=== PATIENT | male | born 1960 | race Caucasian/White ===

== ENCOUNTER 2020-07-04 14:20 | Emergency (ER) | payer SELFPAY ==
[2020-07-04 14:36] VITALS: BMI 29.2
[2020-07-04] MEDS ORDERED: LACTATED RINGERS SOLUTION 1000 ML INFUS.BAG IV ONE (15:12)
[2020-07-04] MEDS ORDERED: LIDOCAINE HCL 2% JELLY 10 ML CARTRIDGE TP ONE (15:24)
[2020-07-04] MEDS ORDERED: LIDOCAINE HCL 2% JELLY 10 ML CARTRIDGE ONE (15:26)
--- NOTE | 2020-07-04 15:46 | PDOC ---
History of Present Illness - General Chief Complaint: Alcohol intoxication Stated Complaint: INTOX/HEAD LAC Time Seen by Provider: 07/04/20 15:10 - History of Present Illness Initial Comments: 07/04/20 18:02 60yo M BIBEMS AMS w/ facial trauma. Hx UTO due to intoxication. Past History - Medical History Allergies/Adverse Reactions: Allergies Allergy/AdvReac Type Severity Reaction Status Date / Time No Known Allergies Allergy Verified 07/04/20 14:32 Home Medications: Ambulatory Orders Unobtainable 07/04/20 COPD: No - Psycho-Social/Smoking History Smoking History: Unknown if ever smoked - Substance Abuse Hx (Audit-C & DAST Scrn) In the last yr the pt used illegal drug/Rx for NonMed reason: No Score: Yes response is considered Positive: 0 Screen Result (Positive result requires Nsg. DAST-10): Negative Review of Systems - Review of Systems Able to Perform ROS?: No (intoxication) Is the patient limited Kyrgyz proficient: Yes *Physical Exam - Vital Signs Last Vital Signs Temp Pulse Resp BP Pulse Ox 98.2 F 77 18 108/72 96 07/04/20 14:33 07/04/20 14:33 07/04/20 14:33 07/04/20 14:33 07/04/20 14:33 - Physical Exam General Appearance: Yes: Alcohol on Breath, Intoxicated HEENT: positive: Lesions (laceration above Left eyebrow - 3cm from lateral to medial ), Other. negative: Muffled/Hoarse voice, Rhinorrhea, Hearing Decreased Neck: positive: Trachea midline, Supple. negative: Tender, Rigid, Stridor, Rigidity, Tender lateral, Tender midline Respiratory/Chest: positive: Lungs Clear, Normal Breath Sounds. negative: Chest Tender, Respiratory Distress Cardiovascular: positive: Regular Rhythm, Regular Rate, S1, S2. negative: Murmu r Gastrointestinal/Abdominal: positive: Normal Bowel Sounds, Soft. negative: Mass Musculoskeletal: positive: Normal Inspection. negative: CVA Tenderness, Vertebral Tenderness Extremity: positive: Normal Capillary Refill, Normal Inspection, Pelvis Stable Integumentary: positive: Normal Color, Dry, Warm Neurologic: positive: Disoriented. negative: Fully Oriented Procedures - Laceration/Wound Repair Left Anterior Face Wound Length: 2.6 to 5.0 cm Wound Explored: clean Wound's Depth, Shape: superficial, linear Irrigated w/ Saline: Yes Betadine Prep: No (chlorhexidine) Anesthesia: 1% Lidocaine (injected), 2% Lidocaine (topical) Wound Debrided: minimal Wound Repaired With: Sutures Suture Size/Type: 6:0, other Number of Sutures: 8 Layer Closure: Yes Splint Applied: No Medical Decision Making - Medical Decision Making 07/04/20 19:46 Pt slip and fall while intoxicated w/ face laceration and visible nose deformity -> C-spine immobilization collar, CT head, CT Cervical spine, and CT facial bones. Intoxicated -> measure blood glucose All CT negative for acute pathology Laceration required suture repair. On reassessment, patient is A/Ox4 and has steady gait. Denies midline tenderness when turning head left, right, and [id number]. Denies neurosensory deficits and motor/ROM is intact. -> cleared C-spine. Pt meets criteria for DC. 07/04/20 21:21 Discharge - Discharge Information Problems reviewed: Yes Clinical Impression/Diagnosis: Intoxication Head injury Qualifiers: Encounter type: initial encounter Qualified Code(s): S09.90XA - Unspecified injury of head, initial encounter Laceration of head Qualifiers: Encounter type: initial encounter Location of open wound of head: other part of head Foreign body presence: without foreign body Qualified Code(s): S01.81XA - Laceration without foreign body of other part of head, initial encounter Condition: Improved Disposition: HOME - Admission No - Follow up/Referral Referrals: [facility] [place] [Provider Group] - Patient Discharge Instructions Patient Printed Discharge Instructions: DI for Alcohol Abuse, DI for Laceration Repair -- Complex Suture Additional Instructions: You came to the ED because you were intoxicated and suffered a facial laceration. We scanned your head, evaluated your bloodwork and heart's electrical activity, and we fixed the laceration on your face. Please come back to the ED with any worsening headache, fever, or other severe symptoms. Please return in 7 days to have your sutures removed. Please follow up with the primary care medicine group listed in your discharge instructions. Print Language: TAJIK - Post Discharge Activity
--- NOTE | 2020-07-04 16:01 | PDOC ---
Documentation entered by Domi Asher SCRIBE, acting as scribe for Georgia Colon MD. Georiga Colon MD: This documentation has been prepared by the Lb malhotra Xhesika, SCRIBE, under my direction and personally reviewed by me in its entirety. I confirm that the documentation accurately reflects all work, treatment, procedures, and medical decision making performed by me. Attending Attestation - Resident Resident Name: Mickey Willett - ED Attending Attestation I have performed the following: I have examined & evaluated the patient, The case was reviewed & discussed with the resident, I agree w/resident's findings & plan, Exceptions are as noted - HPI HPI: 07/04/20 15:52 The patient is a 60y/o M who presents to the ED BIBA for etoh intoxication. Pt is a poor historian and unable to contribute to further history due to his clinical condition. Allergies: NKDA - Physicial Exam PE: GENERAL: Awake, alert, +AOB HEAD: +Laceration to the L forehead, just above the eyebrow, +oozing blood EYES: PERRLA, EOMI, sclera anicteric, conjunctiva clear ENT: Auricles normal inspection, hearing grossly normal, nares patent, oropharynx clear without exudates. Moist mucosa NECK: Normal ROM, supple, no lymphadenopathy, JVD, or masses LUNGS: Breath sounds equal, clear to auscultation bilaterally. No wheezes, and no crackles HEART: Regular rate and rhythm, normal S1 and S2, no murmurs, rubs or gallops ABDOMEN: Soft, nontender, normoactive bowel sounds. No guarding, no rebound. No masses EXTREMITIES: Normal range of motion, no edema. No clubbing or cyanosis. No cords, erythema, or tenderness NEUROLOGICAL: Cranial nerves II through XII grossly intact. Slurred speech. Motor and sensation intact. Gait not tested due to intoxication SKIN: Warm, dry, normal turgor, no rashes. - Medical Decision Making Pt arrives to ED intoxicated, with wound to L forehead. Will repair laceration, CT head/c-spine/facial bones. Metabolize to clinical sobriety. Discharge - Discharge Information Problems reviewed: Yes Clinical Impression/Diagnosis: Intoxication Head injury Qualifiers: Encounter type: initial encounter Qualified Code(s): S09.90XA - Unspecified injury of head, initial encounter Laceration of head Qualifiers: Encounter type: initial encounter Location of open wound of head: other part of head Foreign body presence: without foreign body Qualified Code(s): S01.81XA - Laceration without foreign body of other part of head, initial encounter - Follow up/Referral - Patient Discharge Instructions - Post Discharge Activity
[2020-07-05 05:57] VITALS: BP 133/83; PULSE 81; TEMP 98.8
== END 2020-07-05 06:45 | disposition home or self-care (01) ==
LOC: JER 14:20
PROC: 0HQ0XZZ Repair Scalp Skin, External Approach (ICD-10-PCS; principal; 2020-07-04)
DX: S01.81XA Laceration without foreign body of other part of head, initial encounter (principal); S09.90XA Unspecified injury of head, initial encounter
CPT/HCPCS: 70450-TC; 70486-TC; 72125-TC; 82962; 99285-25

== ENCOUNTER 2021-01-09 11:42 | Emergency (ER) | payer SELFPAY ==
[2021-01-09 12:07] VITALS: BP 110/88; PULSE 90; TEMP 98.9; BMI 29.9
== END 2021-01-09 13:26 | disposition home or self-care (01) ==
LOC: JERFT 11:42
DX: Z48.01 Encounter for change or removal of surgical wound dressing (principal)
CPT/HCPCS: 99281-25

== ENCOUNTER 2021-01-09 17:36 | Emergency (ER) | payer SELFPAY ==
[2021-01-09 17:43] VITALS: BP 132/87; PULSE 96; TEMP 97.8; BMI 24.2
== END 2021-01-09 19:54 | disposition home or self-care (01) ==
LOC: JER 17:36 → JERFT 17:36
DX: Z48.01 Encounter for change or removal of surgical wound dressing (principal)
CPT/HCPCS: 99281-25

== ENCOUNTER 2021-01-14 20:44 | Emergency (ER) | payer SELFPAY ==
[2021-01-14 21:56] VITALS: BMI 25.0
[2021-01-15 09:23] VITALS: BP 123/89; PULSE 103; TEMP 97.1
== END 2021-01-15 09:23 | disposition home or self-care (01) ==
LOC: JER 20:44
DX: F10.929 Alcohol use, unspecified with intoxication, unspecified (principal)
CPT/HCPCS: 82962; 99283-25

== ENCOUNTER 2021-03-19 20:23 | Emergency (ER) | payer SELFPAY ==
[2021-03-19 20:38] VITALS: TEMP 97.4; BMI 26.6
[2021-03-19] MEDS ORDERED: SODIUM CHLORIDE 0.9% 500 ML INFUS.BAG IV ONE (21:49)
[2021-03-20 01:09] LABS: PH,URINE 6.5 (5.0-8.0); URINE APPEARANCE CLEAR; URINE BILIRUBIN NEGATIVE (NEGATIVE); URINE COLOR YELLOW; URINE GLUCOSE (UA) NEGATIVE (NEGATIVE); URINE KETONE NEGATIVE (NEGATIVE); URINE LEUK ESTERASE NEGATIVE (NEGATIVE); URINE NITRITE NEGATIVE (NEGATIVE); URINE PROTEIN NEGATIVE (NEGATIVE); URINE UROBILINOGEN 0.2 mg/dL (0.2-1.0)
[2021-03-20 01:58] VITALS: BP 131/85; PULSE 76
== END 2021-03-20 06:43 | disposition home or self-care (01) ==
LOC: JER 20:23
DX: F19.920 Other psychoactive substance use, unspecified with intoxication, uncomplicated (principal)
CPT/HCPCS: 36415; 80307; 81003; 82962; 87086; 99284-25

== ENCOUNTER 2025-02-04 13:31 | Emergency (ER) | payer SELFPAY ==
[2025-02-04 13:51] VITALS: RESP 16; TEMP 97.5; BMI 23.3
[2025-02-04 17:59] VITALS: BP 92/55; PULSE 84
[2025-02-04] MEDS ORDERED: IBUPROFEN 600 MG TABLET (FP) PO ONE (19:22)
[2025-02-04] MEDS ORDERED: HYDROCORTISONE 1% TOPICAL CREAM 30 GM TUBE TP ONE (19:22)
== END 2025-02-04 19:30 | disposition home or self-care (01) ==
LOC: JER 13:31
DX: F10.129 Alcohol abuse with intoxication, unspecified (principal); M25.561 Pain in right knee; M25.551 Pain in right hip; L29.9 Pruritus, unspecified
CPT/HCPCS: 73502-TC-RT-FY; 73562-TC-RT-FY; 82962; 99284-25